=== PATIENT | male | born 1995 | race Caucasian/White ===

== ENCOUNTER 2019-03-24 08:36 | Emergency (ER) | payer OTHER ==
[2019-03-24 08:42] VITALS: BP 153/77
--- NOTE | 2019-03-24 09:28 | ER Document Report ---
ED General - General Chief Complaint: Anxiety Stated Complaint: ANXIETY Time Seen by Provider: 03/24/19 09:04 Primary Care Provider: ILSA RAHMAN MD [Primary Care Provider] - Follow up as needed - [facility] Notes: Patient is a 24-year-old male who presents emergency department for evaluation of increased anxiety and panic attacks. He states he has had the symptoms for the last 3 years. He states he complains of palpitations, sweaty palms, numbness in his arms and legs. They seem to come on regardless of the social situation. He denies any suicidal or homicidal ideation. He denies any visual or auditory hallucination. He finally went to his family doctor about it yesterday, started Zoloft. He states he is actually had 3 panic attacks since onset of that medication. He denies any heat intolerance, cold intolerance, change in bowel or bladder habits he denies unintentional weight loss or weight gain. He has never had a psychiatric hospitalization. - Related Data Allergies/Adverse Reactions: No Known Allergies Allergy (Verified 03/24/19 08:40) Past Medical History - General Information source: Patient, Parent - Social History Smoking Status: Former Smoker Chew tobacco use (# tins/day): No Frequency of alcohol use: Social Drug Abuse: Marijuana Family History: Reviewed & Not Pertinent Patient has suicidal ideation: No Patient has homicidal ideation: No Surgical Hx: Negative Review of Systems - Review of Systems Constitutional: No symptoms reported EENT: No symptoms reported Cardiovascular: No symptoms reported Respiratory: No symptoms reported Gastrointestinal: No symptoms reported Genitourinary: No symptoms reported Musculoskeletal: No symptoms reported Skin: No symptoms reported Neurological/Psychological: See HPI Physical Exam - Vital signs Vitals: Temp Pulse Resp BP Pulse Ox 98.7 F 96 18 153/77 H 100 03/24/19 08:40 03/24/19 08:40 03/24/19 08:40 03/24/19 08:40 03/24/19 08:40 - Notes Notes: This is a very pleasant and anxious appearing 24-year-old male, who appears his stated age in no acute distress. Diminished eye contact, sweaty palms. Vital signs reviewed, please refer to chart. Head is normocephalic, atraumatic. Pupils equal round, reactive to light. Neck is supple without meningismus. Heart is regular rate and rhythm. Lungs are clear to auscultation bilaterally. Abdomen is soft, nontender, normoactive bowel sounds throughout. Extremities without cyanosis, clubbing. Posterior calves are nontender. Peripheral pulses a re equal. Skin is warm and dry. Patient is awake, alert, neurological exam is nonfocal. Course - Re-evaluation Re-evalutation: 03/24/19 09:23 Patient presents to the emergency department for evaluation. We discussed the addition of behavioral therapy to his Zoloft. Certainly it is possible that starting the Zoloft is increased his panic attacks mildly. We did talked about the fact that this should level off in the next several weeks. We also discussed his marijuana use. I explained to him that some strains of marijuana have been shown to increase anxiety markedly. He states that he has had some decrease in his anxiety while using marijuana. I did tell him that he should consider abstaining from this drug. Otherwise, we discussed possible as needed treatments. I explained my concerns with benzodiazepines, and we agreed that Vistaril with a place to start. He was still notified that this can cause dizziness and drowsiness, and he should take caution when taking this medication. Otherwise he is encouraged to continue his Zoloft, and titrate up. He is encouraged to seek out CBT. He is to return to the emergency department with worsening or new concerning symptoms of any sort. - Vital Signs Vital signs: Temp Pulse Resp BP Pulse Ox 98.7 F 96 18 153/77 H 100 03/24/19 08:40 03/24/19 08:40 03/24/19 08:40 03/24/19 08:40 03/24/19 08:40 Discharge - Discharge Clinical Impression: Anxiety, Panic attacks Condition: Stable Disposition: HOME, SELF-CARE Instructions: Anxiety ([facility]) Additional Instructions: Take Vistaril as needed for anxiety. Please watch for dizziness and drowsiness with this medication, and do not mix with alcohol. Consider seeking out behavioral therapy as discussed. Titrate up on your Zoloft. Follow-up with your primary care provider as scheduled in 2 weeks. Return to the emergency department with worsening or new concerning symptoms of any sort. Referrals: ILSA RAHMAN MD [Primary Care Provider] - Follow up as needed
== END 2019-03-24 09:53 | disposition home or self-care (01) ==
LOC: ER 08:36
DX: F41.0 Panic disorder [episodic paroxysmal anxiety] (principal); F41.9 Anxiety disorder, unspecified; R00.2 Palpitations; Z79.899 Other long term (current) drug therapy; Z87.891 Personal history of nicotine dependence
CPT/HCPCS: 99283